=== PATIENT | male | born 1985 | race Caucasian/White ===

== ENCOUNTER 2018-07-07 16:36 | Inpatient (IN) | payer OTHER ==
--- NOTE | 2018-07-07 16:46 | EDPHY ---
H & P Time Seen by Provider: 07/07/18 16:45 HPI/ROS: Chief complaint. Finger injury HPI. 32-year-old male here by EMS with hand injury. 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 He slipped on the ramp and the statue came down and crushed his left hand. He has open laceration dislocation of the left 5th finger. He denies any other injuries. He is right handed. He has had no previous injury to the left hand. ROS 10 systems were reviewed and negative with the exception of the elements mentioned in the history of present illness Past Medical/Surgical History: Healthy Social History: Single, nonsmoker, no alcohol Smoking Status: Unknown if ever smoked Physical Exam: General Appearance: Alert well-developed male moderate distress vital signs are stable Eyes: Pupils equal and round no pallor or injection. ENT, Mouth: Mucous membranes are moist. Respiratory: There are no retractions, lungs are clear to auscultation. Cardiovascular: Regular rate and rhythm. Gastrointestinal: Abdomen is soft and nontender, no masses, bowel sounds normal. Neurological: Awake and alert, sensory and motor exams grossly normal. Skin: Warm and dry, no rashes. Musculoskeletal: Neck is supple nontender. Extremities open fracture dislocation to the left 5th finger. Laceration from the webspace between the 4th and 5th fingers to just distal to the D IP joint. Obvious fracture seen in the wound. He has fairly good capillary refill. He has some sensation both to the medial and radial aspects of the distal 5th finger. Psychiatric: Patient is oriented X 3, there is no agitation. Constitutional: Initial Vital Signs Temperature (C) 36.6 C 07/07/18 16:40 Heart Rate 61 07/07/18 16:40 Respiratory Rate 18 07/07/18 16:40 Blood Pressure 106/70 07/07/18 16:40 O2 Sat (%) 94 07/07/18 16:40 O2 Delivery Mode Room Air Allergies/Adverse Reactions: No Known Allergies Allergy (Unverified 07/07/18 16:39) Home Medications: Medication Instructions Recorded NK [No Known Home Meds] 07/07/18 Medical Decision Making - Diagnostics Imaging Results: X-ray left hand shows fracture dislocation of the proximal 5th finger left hand Procedures: IV Ancef. Tetanus immunization. Intravenous morphine for pain control ED Course/Re-evaluation: Patient and I discussed imaging studies. We discussed treatment plan including need for surgery. He expresses understanding and agreement I consulted and discussed the case with , hospitalist, who agrees to the admission Differential Diagnosis: Open fracture dislocation to the 5th finger left hand. Plan is surgery Departure - Departure Disposition: To OP Cath/Surgery Clinical Impression: Open fracture left 5th finger Condition: Fair
[2018-07-07] MEDS ORDERED: TDAP ADULT 0.5 ML INJ (BOOSTRIX) IM ONE (17:08)
[2018-07-07 17:26] LABS: PLATELET COUNT 327 10^3/uL (150-400)
--- NOTE | 2018-07-07 18:50 | PDHPUP ---
History & Physical Update H&P update statement: This history and physical update is based on an assessment of the patient which was completed after admission or registration (within 24 hours), but prior to the surgery/procedure. H&P update: H&P reviewed & patient examined, no change in patient's condition since H&P completed
--- NOTE | 2018-07-07 18:53 | PDGENHP ---
History and Physical History and Physical: CC: RSF injury HPI: Work injury. 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 Carrying a statue down a ramp and his foot slipped b/c ramp wet, crushing his finger. Nearly amputated. Seen in the ED. PMH: none PSH: none reported SocHx: smokes, 1pk/3d PE Gen: alert and oriented RSF -near amputation at PIPJ level with volar and radial skin bridge. finger congested, but there is brisk refill at the nailbed. Intact 2p Imaging: PIP fx/dislocation A/P: RSF PIP fx/dislocation and near amp -plan I&D, surgical fixation vs fusion, possible amp
--- NOTE | 2018-07-07 19:11 | PDANEPAE ---
ANE History of Present Illness R little finger crush injury s/f I&D and repair ANE Past Medical History - Pulmonary History Hx Oxygen in Use at Home: No Hx Sleep Apnea: No - Endocrine History Hx Diabetes: No ANE Review of Systems Review of Systems: - Exercise capacity Exercise capacity: >=4 METS ANE Patient History - Allergies Allergies/Adverse Reactions: No Known Allergies Allergy (Unverified 07/07/18 16:39) - Home Medications Home medications: home medication list seen and reviewed Home Medications: NK [No Known Home Meds] 07/07/18 [Last Taken Unknown] - NPO status NPO Since - Liquids (Date): 07/07/18 NPO Since - Liquids (Time): 16:30 (H2O, Coke) NPO Since - Solids (Date): 07/07/18 NPO Since - Solids (Time): 10:00 - Smoking Hx Smoking Status: Light smoker - Alcohol Use Alcohol Use: Occasionally ANE Labs/Vital Signs - Labs Result Diagrams: 07/07/18 17:18 07/07/18 17:18 - Vital Signs Blood Pressure: 112/76 Heart Rate: 60 Respiratory Rate: 16 O2 Sat (%): 96 Height: 167.64 cm Weight: 77.111 kg ANE Physical Exam - Airway Neck exam: FROM Mallampati Score: Class 2 Mouth exam: normal dental/mouth exam - Pulmonary Pulmonary: no respiratory distress - Cardiovascular Cardiovascular: regular rate and rhythym - ASA Status ASA Status: II, E ANE Anesthesia Plan Anesthesia Plan: GA w LMA
[2018-07-07] MEDS ORDERED: BACITRACIN 50,000 UNITS/10 ML SYR IRR ONE ×2 (19:21→19:31)
--- NOTE | 2018-07-07 19:27 | GDS ---
REASON FOR CONSULTATION: Right small finger PIP fracture dislocation and near amputation. HISTORY OF PRESENT ILLNESS: Wili is a 32-year-old male who sustained this injury earlier today while at work. This is a work injury. 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 He was carrying a statue down a ramp, the ramp was wet, he slipped and fell. The object crushed his finger against the ground. At the time, there was an open injury. He had pain and inability to move the finger. He was then taken to [facility], and evaluated in the ER by Dr. Sandoval and the ER staff. I was called for consultation. In the ER, the patient was given a dose of Ancef. Per Dr. Sandoval, he was given a block; however, prior to the block, he endorsed sensation on both sides of the finger. The patient is right-hand dominant. He denies prior injury to that finger. PAST MEDICAL HISTORY: None. He is healthy. PAST SURGICAL HISTORY: None reported. REVIEW OF SYSTEMS: Review of systems is negative except as noted above. FAMILY HISTORY: Noncontributory. PHYSICAL EXAMINATION: GENERAL: The patient is alert and oriented, in mild distress in the ER [place]. Right small finger: There is a near amputation of the right small finger through the volar aspect of the PIP joint. There is a near- circumferential laceration across the PIP joint with a 1cm dorsal skin bridge. The entire proximal phalanx appears stripped and visible. There is a piece of the proximal phalanx head visible. Sensory exam is difficult due to patient pain; however, he does endorse intact 2-point at roughly 8 mm with a paper clip on both ulnar aspect of his small finger. I am unable to assess the flexor extensor tendon function as the finger is essentially hanging on and bent over about 180 degrees. Cap refill is slightly sluggish in the fingertip, at about 3 -4 seconds, but present. The fingertip appears slightly congested. The open laceration is about 5 cm in length. IMAGING: X-ray of the right small finger was reviewed, which shows a near amputation and PIP fracture dislocation through the PIP joint. There appears to be missing condyle from the proximal phalanx head. Apart from that, the x- ray is very difficult to assess as the finger is essentially superimposed and doubled over on itself. I do not see any other fractures in the other digits. LABS: Normal, apart from a slightly elevated white count. ASSESSMENT AND PLAN: Right small finger open fracture dislocation and near amputation with likely vascular compromise The exam is difficult due to the extent of the trauma; the injury to the joint is severe, as the completely crushed part of the proximal phalanx head appears sheared off. He does have some sluggish cap refill, but he may have lacerated his digital arteries. I discussed with him the options at this point,. If I am able to reconstruct the joint and keep it stable, I may do so, and pin it to stabilize it. If, however, the joint appears completely non-reconstructible, primary fusion is an option in this operative setting. We will perform an aggressive irrigation and debridement. Will assess the neurovascular bundles and repair will be done as necessary. I discussed the risks and benefits of surgery. We also discussed the possible complications of this injury, which are many, including stiffness, loss of function, need for further surgery, including fusion. After our discussion, he wished to proceed with surgery. I discussed this with him and his brother. I will take him in an urgent fashion to the operating room. He understands the very real risk of amputation if there is vascular compromise and the finger cannot be revascularized. /[id number]/MODL NOTE: At the time of test and turn up technician of this report, there may have been blank(s ) to be edited by the dictating clinician. By signing this report, I attest that I have reviewed any blanks in the document, and have either corrected them and/or have no further information to add. Kendall Lisa MD [facility]
[2018-07-07] MEDS ORDERED: BUPIVACAINE 0.5% 30 ML SDV ONE (19:31)
[2018-07-07] MEDS ORDERED: fentaNYL 100 MCG/2 ML INJ ONE (19:41)
[2018-07-07] MEDS ORDERED: DEXAMETHASONE 4 MG/ML VIAL ONE (19:41)
[2018-07-07] MEDS ORDERED: ONDANSETRON 4 MG/2 ML VIAL ONE (19:41)
[2018-07-07] MEDS ORDERED: PROPOFOL/EMULSION 500 MG/50 ML BOTTLE IV ONE ×2 (19:41→22:29)
[2018-07-07] MEDS ORDERED: LIDOCAINE 2% 100 MG/5 ML SYR ONE (19:41)
[2018-07-07] MEDS ORDERED: LIDOCAINE 2% JELLY 6 ML TOPICAL SYR ONE (19:42)
[2018-07-07] MEDS ORDERED: ceFAZolin 1 GM VIAL ONE ×2 (19:49→23:09)
[2018-07-07] MEDS ORDERED: ePHEDrine SULFATE 25 MG/5 ML SYR ONE ×2 (20:12→22:06)
[2018-07-07] MEDS ORDERED: PROPOFOL 200 MG/20 ML VIAL ONE (21:27)
[2018-07-07] MEDS ORDERED: LIDOCAINE 1% 300 MG/30 ML SDV ONE (21:32)
[2018-07-07] MEDS ORDERED: HEPARIN 1000 UNIT/1 ML MDV ONE (21:33)
[2018-07-07] MEDS ORDERED: ceFAZolin 2 GM/DEXTROSE 100 ML IV ONE (22:34)
[2018-07-07] MEDS ORDERED: HEPARIN 10,000 UNIT/10 ML MDV (1,000 UNIT/ML) ONE (23:09)
[2018-07-08] MEDS ORDERED: ceFAZolin 1 GM VIAL ONE (00:24)
[2018-07-08] MEDS ORDERED: METOCLOPRAMIDE 10 MG/2 ML VIAL IVP PRN ×2 (00:25→00:51)
[2018-07-08] MEDS ORDERED: HYDROCODONE/APAP 5/325 TAB PO PRN (00:25)
[2018-07-08] MEDS ORDERED: DEXAMETHASONE 4 MG/ML VIAL IVP PRN (00:25)
[2018-07-08] MEDS ORDERED: LR 500 ML IV PRN (00:25)
[2018-07-08] MEDS ORDERED: ONDANSETRON 4 MG/2 ML VIAL IVP PRN ×2 (00:25→00:51)
[2018-07-08] MEDS ORDERED: ALBUTEROL 3 ML DEYVIAL IH PRN (00:25)
[2018-07-08] MEDS ORDERED: LABETALOL HCL 5 MG/ML 20 ML MDV IVP PRN (00:25)
[2018-07-08] MEDS ORDERED: PHENYLEPHRINE HCL 100 MCG/ML SYR IVP PRN (00:25)
[2018-07-08] MEDS ORDERED: NALOXONE HCL 0.4 MG/ML INJ IVP PRN (00:25)
[2018-07-08] MEDS ORDERED: ACETAMINOPHEN 500 MG TAB PO PRN (00:25)
[2018-07-08] MEDS ORDERED: oxyCODONE IR 5 MG TAB PO PRN (00:25)
[2018-07-08] MEDS ORDERED: PROMETHAZINE HCL 25 MG/ML INJ IVP PRN (00:25)
[2018-07-08] MEDS ORDERED: MEPERIDINE 25 MG/0.5 ML AMP IVP PRN (00:25)
[2018-07-08] MEDS ORDERED: diphenhydrAMINE 25 MG CAP PO PRN (00:51)
[2018-07-08] MEDS ORDERED: ONDANSETRON DISINTEGRATING 4 MG TAB PO PRN (00:51)
[2018-07-08] MEDS ORDERED: fentaNYL 100 MCG/2 ML INJ ONE (01:09)
[2018-07-08] MEDS: fentaNYL 100 MCG/2 ML INJ IVP PRN ×2 (01:11→01:24)
[2018-07-08] MEDS ORDERED: D5W 1/2 NS 1,000 ML IV SCH (01:15)
--- NOTE | 2018-07-08 01:21 | PDCONSULT ---
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 HISTORY OF PRESENT ILLNESS: Kelley is a 32-year-old male who sustained this injury earlier today while at work. This is a work injury. 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 He was carrying a statue down a ramp, the ramp was wet, he slipped and fell. The object crushed his finger against the ground. At the time, there was an open injury. He had pain and inability to move the finger. He was then taken to [facility], and evaluated in the ER by Dr. Sandoval and the ER staff. I was called for consultation. In the ER, the patient was given a dose of Ancef. Per Dr. Sandoval, he was given a block; however, prior to the block, he endorsed sensation on both sides of the finger. The patient is right-hand dominant. He denies prior injury to that finger. PAST MEDICAL HISTORY: None. He is healthy. PAST SURGICAL HISTORY: None reported. REVIEW OF SYSTEMS: Review of systems is negative except as noted above. FAMILY HISTORY: Noncontributory. PHYSICAL EXAMINATION: GENERAL: The patient is alert and oriented, in mild distress in the ER [place]. Right small finger: There is a near amputation of the right small finger through the volar aspect of the PIP joint. There is a near- circumferential laceration across the PIP joint with a 1cm dorsal skin bridge. The entire proximal phalanx appears stripped and visible. There is a piece of the proximal phalanx head visible. Sensory exam is difficult due to patient pain; however, he does endorse intact 2-point at roughly 8 mm with a paper clip on both ulnar aspect of his small finger. I am unable to assess the flexor extensor tendon function as the finger is essentially hanging on and bent over about 180 degrees. Cap refill is slightly sluggish in the fingertip, at about 3 -4 seconds, but present. The fingertip appears slightly congested. The open laceration is about 5 cm in length. IMAGING: X-ray of the right small finger was reviewed, which shows a near amputation and PIP fracture dislocation through the PIP joint. There appears to be missing condyle from the proximal phalanx head. Apart from that, the x- ray is very difficult to assess as the finger is essentially superimposed and doubled over on itself. I do not see any other fractures in the other digits. LABS: Normal, apart from a slightly elevated white count. ASSESSMENT AND PLAN: Right small finger open fracture dislocation and near amputation with likely vascular compromise The exam is difficult due to the extent of the trauma; the injury to the joint is severe, as the completely crushed part of the proximal phalanx head appears sheared off. He does have some sluggish cap refill, but he may have lacerated his digital arteries. I discussed with him the options at this point,. If I am able to reconstruct the joint and keep it stable, I may do so, and pin it to stabilize it. If, however, the joint appears completely non-reconstructible, primary fusion is an option in this operative setting. We will perform an aggressive irrigation and debridement. Will assess the neurovascular bundles and repair will be done as necessary. I discussed the risks and benefits of surgery. We also discussed the possible complications of this injury, which are many, including stiffness, loss of function, need for further surgery, including fusion. After our discussion, he wished to proceed with surgery. I discussed this with him and his brother. I will take him in an urgent fashion to the operating room. He understands the very real risk of amputation if there is vascular compromise and the finger cannot be revascularized. /[id number]/MODL NOTE: At the time of piece dyeing machine tender of this report, there may have been blank(s ) to be edited by the dictating clinician. By signing this report, I attest that I have reviewed any blanks in the document, and have either corrected them and/or have no further information to add. Kendall Lisa MD
[2018-07-08] MEDS: ASPIRIN 325 MG TAB PO SCH ×2 (01:52→08:39)
[2018-07-08] MEDS: ACETAMINOPHEN 325 MG TAB PO SCH ×2 (04:48→13:11)
--- NOTE | 2018-07-08 05:18 | GOP ---
[f rep st] OPERATIVE REPORT DATE OF OPERATION: 07/07/2018 SURGEON: Kendall Lisa MD ANESTHESIA: General. PREOPERATIVE DIAGNOSIS: Right small finger near amputation and PIP fracture dislocation. POSTOPERATIVE DIAGNOSIS: Right small finger near amputation and PIP fracture dislocation with vascular compromise including laceration of both digital arteries and laceration of the ulnar digital nerve. PROCEDURE PERFORMED: 1. Right small finger irrigation and debridement at the site of open fracture of the PIP joint of skin, subcutaneous tissue, fascia, tendon, bone. 2. Right small finger repair of ulnar digital nerve. 3. Right small finger microvascular repair of radial digital artery. 4. Right small finger primary fusion of the PIP joint due to trauma. FINDINGS: ESTIMATED BLOOD LOSS: 20 cc. DESCRIPTION OF PROCEDURE: The patient was seen in the preoperative holding area , was given the opportunity to ask questions. All questions were answered. Consent was signed. Surgical site was marked. He was transferred to the operative suite. Care was taken to pad all bony prominences on the gurney. Time-out was called including surgical and anesthesia teams confirming surgical site and procedure performed. The right upper extremity was prepped and draped in the usual sterile fashion. A time-out was called, and the surgical team confirmed the surgical site and procedure performed. After prepping and draping , we began 1st an exploration. The laceration was as noted above. This was a near complete circumferential laceration. There was flexor tendon visible. The FDP tendon appeared to be intact. There was some laceration of the FDS tendon. The proximal phalanx head was completely sheared off into several pieces. There were several fragments of the proximal phalanx head. They were completely destabilized. This joint was completely destabilized. The middle phalanx base was essentially sheared off as well. This could not be salvaged. I visualized the radial neurovascular bundle. The radial digital nerve appeared stress, however it was intact. The radial digital artery was lacerated. The ulnar neurovascular bundle was completely lacerated as well. There was a partial laceration of the central slip. I first began with irrigation and debridement. I used a rongeur and scissors to debride any contaminated skin, subcutaneous tissue, fascia and bone. I then completed to debride all the fragments of the proximal phalanx head and then debrided off the cartilage of the middle phalanx base for preparation for later primary fusion. Primary fusion was necessary as this joint was nonsalvageable. After I irrigated copiously with several liters of sterile saline, I performed provisional fixation with K-wires in the desired position for fusion. This was difficult to achieve as this was a completely destabilize finger. However, I was able to hold it in a position that appeared functional. I also had to perform this in a timely fashion to be able to assess the vascularity of the finger. He already was experiencing some warm ischemia time. After provisional fixation I visualized the digit. The digit indeed appeared to be devascularized. He had some sluggish cap refill through the nail bed, which may be through some dorsal collaterals. However, both digital arteries were lacerated. I inspected both digital arteries. The ulnar digital artery was small, somewhat diminutive and I could not visualize a distal portion that could be revascularized. This was small and flimsy and was completely crushed. Radially, however the artery appeared more robust and I was able to find both ends that had shortened due to fusion I was able to bring together nicely. It took me quite some time, however to get some proximal flow into the artery. I warmed up the finger. I had anesthesia increase the blood pressure. I used a combination of heparin, lidocaine, and Ringer's to irrigate. After more than a half hour of attempts, I was able to finally get flow through this artery. We then began the revascularization portion. I used a double approximating clamp and brought the artery together. I used 10-0 suture, 1st placing 2 sutures in the standard fashion, then flipping it over suturing the back wall, then flipping it over and then position the anastomosis. I removed the clamp and I had achieved a good anastomosis with a good pulse and a good flow across the anastomosis. I was very happy with this. The finger immediately pinked up with great cap refill and good turgor. I then turned my attention to the ulnar digital artery. I repaired this with 10-0 nylon epineurial suture. I then turned my attention to completing the fusion. I had already placed the 4.5 K- wires. I then simply passed a 26-gauge stainless steel wire for the tension band, tightened this, then cut the wire short, flipped him over. I then carefully loosely closed with 4-0 nylon. Again, while doing so we kept the finger warm with warm saline throughout the case. At the end it had brisk cap refill. I placed him in an ulnar gutter splint, wrapped the hand in a warm blanket and he was taken to PACU in stable condition. INDICATIONS OF THE PROCEDURE: The patient is a 32-year-old male who sustained a work injury today. 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 He was seen and evaluated in the ED. I was called about a half hour after presentation in the ED and informed that the patient had a severe fracture dislocation. At the time I was informed that there was some perforation of the finger. I saw the patient about a half hour after I was notified. I examined his finger. He had a near amputation of the right small finger at the PIP joint. There was a severe PIP fracture dislocation. He had a near circumferential laceration with only about a 1 cm dorsal skin bridge. His cap refill was sluggish, but present and he did appear to have cap refill in his nail bed. Sensory exam was difficult as the patient had been blocked prior due to the difficult with the pain and trauma. However, he did endorse some sensation in at least the radial aspect of his finger. This is a severe injury. I discussed the risks and benefits of the injury with him and his brother. We discussed that I will try to salvage the finger. The PIP joint may not be able to be salvaged. I may need to perform a primary fusion. I am going to repair the nerve injury I encounter. However, if there is a vascular injury that cannot be repaired an amputation of the finger may need to be performed. They understand that this is a severe injury. After our discussion he wished to proceed. He was then taken urgently to the operating room. POSTOPERATIVE CONDITION: Stable. POSTOPERATIVE PLAN: The patient will be admitted to step-down care for vascular checks. I will initially have him n.p.o. He was given a dose of 5000 of heparin intraoperatively. I will then give him aspirin. I will follow the patient while in the hospital. When I am happy with the vascularity, he will be discharged home. He is to not have any nicotine or caffeine. I will discuss with him and his family that there is still a chance of losing perfusion to the finger, which may necessitate an amputation. The prognosis for this finger is guarded. However, at this point, the finger does appear perfused. /[id number]/MODL MTDD
--- NOTE | 2018-07-08 07:49 | SOAPPROG ---
SOAP Progress Note Assessment/Plan: Assessment:POD#1 s/p RSF i&d, fusion of PIPJ, and revasc for near amp Plan: -will keep the pt in sdu until this evening until I re-assess the digit. Will decide on d/c -maintain npo for now -keep finger warm -no nicotine, no caffeine 07/08/18 07:47 Subjective: Doing ok this am. Having some pain. Objective: Vital Signs Temp Pulse Resp BP Pulse Ox 37.0 C 89 14 116/62 94 07/08/18 04:00 07/08/18 04:00 07/08/18 04:00 07/08/18 04:00 07/08/18 04:00 Laboratory Results 07/07/18 17:18 07/07/18 17:18 07/07/18 07/08/18 07/09/18 05:59 05:59 05:59 Intake Total 2250 Output Total 25 Balance 2225 In icu with juan hugger warmer directly over digit RUE -splint in place. Digit is warm and pink with brisk cap refill and good turgor ICD10 Worksheet Patient Problems: Problems Problem Status Onset Open fracture dislocation of finger Acute Open fracture dislocation of finger Acute - ICD10 Problem Qualifiers (1) Open fracture dislocation of finger Qualifiers: Encounter type: initial encounter Qualified Code(s): S62.609B - Fracture of unspecified phalanx of unspecified finger, initial encounter for open fracture (2) Open fracture dislocation of finger Qualifiers: Encounter type: initial encounter Qualified Code(s): S62.609B - Fracture of unspecified phalanx of unspecified finger, initial encounter for open fracture
[2018-07-08] MEDS ORDERED: FAMOTIDINE 20 MG TAB PO SCH (09:00)
[2018-07-08] MEDS: ceFAZolin 2 GM/DEXTROSE 100 ML IV SCH ×2 (09:02→16:06)
--- NOTE | 2018-07-08 11:35 | ASMTCMCOM ---
CM Note CM Note Notes: 32-year-old male came in with a work injury. Pt crushed his finger while moving a statue. During rounds it appeared that pt had friend/family support. No therapy warranted at this time. Pt will likely transfer to floor today. Anticipate he will be able to discharge home independently but CM will continue to follow for needs. Plan: TBD Date Signed: 07/08/2018 11:34 AM Electronically Signed By:Zoe Hurtado
[2018-07-08] MEDS: oxyCODONE IR 5 MG TAB PO PRN ×3 (11:42→15:55)
--- NOTE | 2018-07-08 13:22 | PDMN ---
Medical Necessity Medical necessity: [facility] musculoskeletal sgy A-3 days INPT : 98081 debridement , bone, - R sm. finger near amputation and PIP fx dislocation- OP : R sm. finger I/D of open fx of PIP joint of skin, subcutaneous tissue, fascia , tendon and bone. R sm. finger repair of l=ulnar digital nerve, R sm. finger microvasculr repair of R sm. finger radial digital artery, R sm. finger primary fusion of PIP joint due to trauma.
[2018-07-08 16:38] VITALS: BP 99/69
--- NOTE | 2018-07-08 21:21 | SOAPPROG ---
SOAP Progress Note Assessment/Plan: Assessment:POD#1 s/p RSF i&d, fusion of PIPJ, and revasc for near amp -has remained well perfused throughout the day Plan: -I think he is safe to d/c. We had a long discussion with him and his brother regarding precautions. He absolutely cannot use nicotine. No caffeine. He needs to keep the digit warm for the next week. -D/c with ASA 325mg -keep finger warm -no nicotine, no caffeine Subjective: Doing well this evening. No issues with the digit during the day. Well perfused throughout the day. Objective: Vital Signs Temp Pulse Resp BP Pulse Ox 36.6 C 77 20 99/69 L 94 07/08/18 16:00 07/08/18 16:00 07/08/18 16:00 07/08/18 16:00 07/08/18 16:00 Laboratory Results 07/07/18 17:18 07/07/18 17:18 07/07/18 07/08/18 07/09/18 05:59 05:59 05:59 Intake Total 2250 Output Total 25 Balance 2225 LSF -brisk <2s cap refill, good turgor -dressing clean and dry ICD10 Worksheet Patient Problems: Problems Problem Status Onset Open fracture dislocation of finger Acute Open fracture dislocation of finger Acute - ICD10 Problem Qualifiers (1) Open fracture dislocation of finger Qualifiers: Encounter type: initial encounter Qualified Code(s): S62.609B - Fracture of unspecified phalanx of unspecified finger, initial encounter for open fracture (2) Open fracture dislocation of finger Qualifiers: Encounter type: initial encounter Qualified Code(s): S62.609B - Fracture of unspecified phalanx of unspecified finger, initial encounter for open fracture
--- NOTE | 2018-07-08 22:31 | GDS ---
[f rep st] DISCHARGE SUMMARY Admission time about 2 a.m. Discharge was evening of July 08. PROCEDURE PERFORMED: Right small finger irrigation, debridement, PIP fusion and revascularization, r epair of radial digital artery and microsurgical repair of ulnar digital nerve. ADMISSION DIAGNOSIS: Right small finger near-amputation with complex open proximal interphalangeal j oint fracture dislocation, laceration of ulnar digital nerve and artery, and laceration of radial dig ital artery. HOSPITAL COURSE: Wili was admitted after the above-stated procedure, for observation in the step-do wn unit. He was admitted for close monitoring of vascular status q.2 hours. He had his hand placed in a [employer] to keep it warm. I kept him n.p.o. for observation during the night and during part of the day. His finger remained well perfused during the night. When I saw him in the morning, the finger was brisk, well perfused fingers, and with good turgor. During the day I kept him n.p.o. dur ing part of the day for more observation during the day. When I returned in the evening, he had no c hange in his vascular status. His finger remained brisk, well perfused, pink, without congestion. A s he was out of the crucial 12-hour period and the vascularity of the finger was above, it was felt h amisha was safe to discharge home. I discussed with him and his brother the precautions. He is to use no nicotine. He should refrain from caffeine. He needs to keep the hand warm for the next week. He is to continue his aspirin. He should call me if there is any change in vascular status. I will see t hem in a week. /[id number]/MODL
--- NOTE | 2018-07-11 16:06 | POSTANESTH ---
Post Anesthetic Evaluation Cardiovascular Status: Normal, Stable Respiratory Status: Normal, Stable Level of Consciousness/Mental Status: Can Participate in Eval Pain Control: Adequate, Prn Tx Ordered Nausea/Vomiting Control: Adequate, Prn Tx Ordered Complications Possibly Related to Anesthesia: None Noted
== END 2018-07-08 18:35 | disposition home or self-care (01) | DRG 906 ==
LOC: FSGY 16:36 → EDSTATUS 18:48 → F2N 07-08 01:33
PROVIDERS: ADMIT Orthopaedic Surgery Hand Surgery; ATTEND Orthopaedic Surgery Hand Surgery
DX: S68.626A Partial traumatic transphalangeal amputation of right little finger, initial encounter (principal); S67.196A Crushing injury of right little finger, initial encounter; S64.496A Injury of digital nerve of right little finger, initial encounter; S65.516A Laceration of blood vessel of right little finger, initial encounter; W20.8XXA Other cause of strike by thrown, projected or falling object, initial encounter; W01.0XXA Fall on same level from slipping, tripping and stumbling without subsequent striking against object, initial encounter; Y99.0 Civilian activity done for income or pay; Y93.E6 Activity, residential relocation
CPT/HCPCS: 96365; C1713; J0690; J1100; J1644; J2001; J2270; J2405; J2704; J3010